=== PATIENT | male | born 1995 | race African-American/Black ===

== ENCOUNTER 2018-05-22 10:41 | Emergency (ER) | payer MEDICAID ==
[~2018-05-22] VITALS: Ht 170.2 cm; Wt 100.0 kg
[2018-05-22] MEDS ORDERED: LIDOCAINE 4% 50 ML SOLUTION TP ONE (11:15)
[2018-05-22] MEDS ORDERED: LIDOCAINE 2%/EPI 1:200,000/PF 20 ML VIAL INJ ONE (11:30)
[2018-05-22 12:58] VITALS: BP 133/89
== END 2018-05-22 13:00 | disposition home or self-care (01) ==
LOC: EMS 10:43
DX: S01.551A Open bite of lip, initial encounter (principal); S01.511A Laceration without foreign body of lip, initial encounter; F17.210 Nicotine dependence, cigarettes, uncomplicated; F12.10 Cannabis abuse, uncomplicated; W54.0XXA Bitten by dog, initial encounter; Y93.89 Activity, other specified; Y92.89 Other specified places as the place of occurrence of the external cause; Y99.8 Other external cause status
CPT/HCPCS: 12013; 99406